=== PATIENT | female | born 1985 | race African-American/Black ===

== ENCOUNTER 2017-01-08 00:20 | Emergency (ER) | payer OTHER ==
[~2017-01-08] VITALS: Ht 172.7 cm; Wt 143.3 kg
[~2017-01-08 00:20] MED LIST: LISI-334 PO
[2017-01-08 00:30] VITALS: BP 175/96
[2017-01-08 00:38] LABS: BILIRUBIN,URINE SMALL (NEG); GLUCOSE,URINE NEGATIVE (NEG); NITRITE,URINE NEGATIVE (NEG); PH,URINE 5.5; PROTEIN,URINE 30 mg/dL (NEG-TRACE)
[2017-01-08 00:58] LABS: RBC,URINE TNTC /HPF (0-2)
[2017-01-08 00:59] LABS: BACTERIA,URINE FEW /HPF (0-FEW); SQUAMOUS EPITHELIAL CELL,UR FEW /LPF
[2017-01-08] MEDS ORDERED: NAPR-677 PO (01:02)
--- NOTE | 2017-01-08 01:02 | PHYS DOC ---
Past Medical History Past Medical History: Hypertension Additional Past Medical Histor: Ovarian cysts Past Surgical History: Additional Past Surgical Histo: ovarian cystectomy left Smoking: Cigarettes Alcohol Use: Occasionally Drug Use: None Adult General Chief Complaint Chief Complaint: ABDOMINAL PAIN HPI HPI Patient is a 31 year old female who presents with vaginal bleeding and cramping. She states she started her menses on and has had lower abdominal cramping more on the left. No nausea or vomiting. No fever. She is suppose to take hypertensive meds but has been out for a while. She has no PCP. She took "aspirin" on Saturday. She states it was Excedrin with aspirin (but not for sure). Review of Systems Review of Systems Constitutional: Denies fever or chills Eyes: Denies change in visual acuity, redness, or eye pain HENT: Denies nasal congestion or sore throat Respiratory: Denies cough or shortness of breath Cardiovascular: No chest pain GI: Denies abdominal pain, nausea, vomiting, bloody stools or diarrhea : Denies dysuria or hematuria. POS pelvic cramping; POS vaginal bleeding Musculoskeletal: Denies back pain or joint pain Integument: Denies rash or skin lesions Neurologic: Denies headache, focal weakness or sensory changes Allergies Allergies Allergies Coded Allergies Type Severity Reaction Last Updated Verified No Known Drug Allergies 08/26/14 No Physical Exam Physical Exam Constitutional: Well developed, well nourished, no acute distress, non-toxic appearance. HENT: Normocephalic, atraumatic, bilateral external ears normal, oropharynx moist, no oral exudates, nose normal. Eyes: PERRLA, EOMI, conjunctiva normal, no discharge. Neck: Normal range of motion, no tenderness, supple, no stridor. Cardiovascular:Heart rate regular rhythm, no murmur Lungs & Thorax: Bilateral breath sounds clear to auscultation Abdomen: Bowel sounds normal, soft, no tenderness, no masses, no pulsatile masses. : operating room rn present. Normal external genitalia. No rash. Bleeding from OS ( mild). No cervical motion tenderness. No masses palpable (but difficult secondary to obesity). Skin: Warm, dry, no erythema, no rash. Back: No tenderness, no CVA tenderness. Extremities: No tenderness, no cyanosis, no clubbing, ROM intact, no edema. Neurologic: Alert and oriented X 3, normal motor function, normal sensory function, no focal deficits noted. Psychologic: Affect normal, judgement normal, mood normal. Current Patient Data Lab Values Laboratory Tests Test 01/08/17 00:33 POC Urine HCG, Qualitative Hcg negative (Negative) Course & Med Decision Making Course & Med Decision Making Evaluated patient and reviewed prior records. She is noncompliant with her BP meds. She had a reaction (angioedema) to the lisinopril and has never been placed on another BP medication. UCG is negative. Given referral for follow up to have her BP addressed. Informed her not to take aspirin. Take tylenol or naprosyn. I have spoken with the patient and/or caregivers. I have explained the patient' s condition, diagnosis and treatment plan based on the information available to me at this time. I have answered the patient's and/or caregiver's questions and addressed any concerns. The patient and/or caregivers have as good an understanding of the patient's diagnosis, condition and treatment plan as can be expected at this point. The patient's condition is stable and appropriate for discharge from the emergency department. The patient will pursue further outpatient evaluation with the primary care physician or other designated or consulting physician as outlined in the discharge instructions. The patient and/or caregivers are agreeable to this plan of care and follow-up instructions have been explained in detail. The patient and/or caregivers have received these instructions in written format and have expressed an understanding of the discharge instructions. The patient and/or caregivers are aware that any significant change in condition or worsening of symptoms should prompt an immediate return to this or the closest emergency department or a call to 911. Mayela Disclaimer Mayela Disclaimer This electronic medical record was generated, in whole or in part, using a voice recognition dictation system. Departure Departure Impression: Primary Impression: Dysmenorrhea Disposition: HOME, SELF-CARE Condition: GOOD Referrals: NO PCP (PCP) Patient Instructions: Dysmenorrhea Additional Instructions: YOU NEED TO CONTACT ONE OF THE PRIMARY CARE DOCTORS TO HAVE YOUR BLOOD PRESSURE RE-EVALUATED. CONTACT YOUR OB-USER EXPERIENCE DEVELOPER THAT YOU HAVE FOR YOUR PAINFUL PERIODS. YOU NEED TO STOP SMOKING WELL. DO NOT TAKE ANYTHING WITH ASPIRIN IN IT. ANOTHER NAME FOR ASPIRIN IS SALICYLATES OR SALICYLIC ACID. Scripts Naproxen Sodium (NAPROXEN SODIUM) 550 Mg Tablet 1 TAB PO BID, #30 TAB Prov: SUSAN LOZADA MD 01/08/17 SUSAN LOZADA MD Jan 08, 2017 01:02
== END 2017-01-08 01:14 | disposition home or self-care (01) ==
LOC: ER 00:20
DX: N94.6 Dysmenorrhea, unspecified (principal); I10 Essential (primary) hypertension; Z90.6 Acquired absence of other parts of urinary tract; F17.210 Nicotine dependence, cigarettes, uncomplicated
CPT/HCPCS: 81001; 81025; 87086; 87491; 87591; 99284

== ENCOUNTER 2017-10-11 05:11 | Emergency (ER) | payer OTHER ==
[2017-10-11] MEDS: HYDROcodone/APAP 5/325MG 1 TAB TABLET PO (05:50)
[2017-10-11 06:05] LABS: D-DIMER 0.27 ug/mlFEU (0.00-0.50)
[2017-10-11 06:24] LABS: TROPONINI < 0.017 ng/mL (0.000-0.055)
== END 2017-10-11 07:30 | disposition home or self-care (01) ==
LOC: ER 05:11
DX: R07.89 Other chest pain (principal); I10 Essential (primary) hypertension
CPT/HCPCS: 36415; 71045; 84484; 84702; 85379; 93005; 99285-25

== ENCOUNTER 2018-02-20 06:15 | Emergency (ER) | payer OTHER ==
[~2018-02-20] VITALS: Ht 175.3 cm; Wt 131.5 kg
[~2018-02-20 06:15] MED LIST changes: +FAMO-63 PO; +NAPR-677 PO
--- NOTE | 2018-02-20 06:32 | PHYS DOC ---
Past Medical History Past Medical History: Hypertension Additional Past Medical Histor: Ovarian cysts, obesity Past Surgical History: Additional Past Surgical Histo: ovarian cystectomy left Smoking: Cigarettes, 1 Pack Per Day Alcohol Use: None Drug Use: Marijuana Adult General Chief Complaint Chief Complaint: SHORTNESS OF BREATH HPI HPI Patient is a 32-year-old -[place] female who presents to the emergency department for multiple medical complaints. Her main complaint is lower back pain which has been bothering her for about 3 weeks. She reports bilateral bandlike tightening in her lower back. She has not had any dysuria, vaginal bleeding or discharge. Her LMP was about 2 weeks ago, and around that time she had an Implanon contraceptive device implanted in her left arm. She states also that this morning she awakened and was somewhat short of breath and lightheaded and felt her heart beating fast, but the symptoms have mostly resolved at this time. She denies any chest pain, pleuritic or otherwise. She denies any numbness or weakness, abdominal pain, nausea, vomiting. There are no alleviating or exacerbating factors to her symptoms otherwise. Review of Systems Review of Systems Constitutional: Denies fever or chills [] Eyes: Denies change in visual acuity, redness, or eye pain [] HENT: Denies nasal congestion or sore throat [] Respiratory: Denies cough or current shortness of breath [] Cardiovascular: No additional information not addressed in HPI [] GI: Denies abdominal pain, nausea, vomiting, bloody stools or diarrhea [] : Denies dysuria or hematuria [] Musculoskeletal: Denies neck pain or joint pain [] Integument: Denies rash or skin lesions [] Neurologic: Denies headache, focal weakness or sensory changes [] Endocrine: Denies polyuria or polydipsia [] All other systems were reviewed and found to be within normal limits, except as documented in this note. Allergies Allergies Allergies Coded Allergies Type Severity Reaction Last Updated Verified No Known Drug Allergies 08/26/14 No Physical Exam Physical Exam PHYSICAL EXAM: CONSTITUTIONAL: Well developed, well nourished HEAD: normocephalic, atraumatic EENT: PERRL, EOMI. Conjunctivae normal color, sclerae non-icteric; moist mucous membranes. NECK: Supple, non-tender; no meningismus. LUNGS: Lungs CTA, breathing even and unlabored. Normal air movement. HEART: Regular rate and rhythm, no murmur CHEST: No deformity; non-tender ABDOMEN: The abdomen is soft, and non-tender, no masses or bruits. EXTREM: Normal ROM; no deformity, no calf tenderness. Normal pulses palpable in all extremities. There is no pedal edema. SKIN: No rash; no diaphoresis NEURO: Alert; normal speech and cognition; CN's grossly intact; strength grossly intact without focal deficit. BACK: No CVA TTP.There is no bony tenderness to palpation of the thoracic or lumbar spine. Current Patient Data Vital Signs Vital Signs Date Time Temp Pulse Resp B/P (MAP) Pulse Ox O2 Delivery O2 Flow Rate FiO2 02/20/18 06:20 99.0 65 18 162/74 (103) 97 Room Air 99.0 Lab Values Laboratory Tests Test 02/20/18 06:25 02/20/18 06:38 02/20/18 07:17 Urine Collection Type Unknown Urine Color Yellow Urine Clarity Clear Urine pH 7.0 Urine Specific [place] 1.025 Urine Protein Negative mg/dL (NEG-TRACE) Urine Glucose (UA) Negative mg/dL (NEG) Urine Ketones (Stick) Negative mg/dL (NEG) Urine Blood Small (NEG) Urine Nitrite Negative (NEG) Urine Bilirubin Negative (NEG) Urine Urobilinogen Dipstick 1.0 mg/dL (0.2 mg/dL) Urine Leukocyte Esterase Negative (NEG) Urine RBC 3-5 /HPF (0-2) Urine WBC 1-4 /HPF (0-4) Urine Squamous Epithelial Cells Few /LPF Urine Bacteria Few /HPF (0-FEW) Urine Mucus Slight /LPF POC Urine HCG, Qualitative Hcg negative (Negative) White Blood Count 6.8 x10^3/uL (4.0-11.0) Red Blood Count 6.08 x10^6/uL (3.50-5.40) H Hemoglobin 11.6 g/dL (12.0-15.5) L Hematocrit 35.1 % (36.0-47.0) L Mean Corpuscular Volume 58 fL (79-100) L Mean Corpuscular Hemoglobin 19 pg (25-35) L Mean Corpuscular Hemoglobin Concent 33 g/dL (31-37) Red Cell Distribution Width 19.4 % (11.5-14.5) H Platelet Count 488 x10^3/uL (140-400) H Neutrophils (%) (Auto) 57 % (31-73) Lymphocytes (%) (Auto) 33 % (24-48) Monocytes (%) (Auto) 8 % (0-9) Eosinophils (%) (Auto) 2 % (0-3) Basophils (%) (Auto) 1 % (0-3) Neutrophils # (Auto) 3.9 x10^3uL (1.8-7.7) Lymphocytes # (Auto) 2.2 x10^3/uL (1.0-4.8) Monocytes # (Auto) 0.5 x10^3/uL (0.0-1.1) Eosinophils # (Auto) 0.1 x10^3/uL (0.0-0.7) Basophils # (Auto) 0.0 x10^3/uL (0.0-0.2) Platelet Estimate Pending D-Dimer ([place]) 0.36 ug/mlFEU (0.00-0.50) Sodium Level 139 mmol/L (136-145) Potassium Level 4.1 mmol/L (3.5-5.1) Chloride Level 104 mmol/L (98-107) Carbon Dioxide Level 24 mmol/L (21-32) Anion Gap 11 (6-14) Blood Urea Nitrogen 12 mg/dL (7-20) Creatinine 0.8 mg/dL (0.6-1.0) Estimated GFR (Cockcroft-Gault) 101.9 BUN/Creatinine Ratio 15 (6-20) Glucose Level 89 mg/dL (70-99) Calcium Level 8.9 mg/dL (8.5-10.1) Total Bilirubin 0.3 mg/dL (0.2-1.0) Aspartate Amino Transferase (AST) 11 U/L (15-37) L Alanine Aminotransferase (ALT) 16 U/L (14-59) Alkaline Phosphatase 52 U/L (46-116) Troponin I Quantitative < 0.017 ng/mL (0.000-0.055) Total Protein 8.5 g/dL (6.4-8.2) H Albumin 3.2 g/dL (3.4-5.0) L Albumin/Globulin Ratio 0.6 (1.0-1.7) L Lipase 66 U/L (73-393) L Laboratory Tests 02/20/18 07:17 Laboratory Tests 02/20/18 07:17 EKG EKG [Normal sinus rhythm at a rate of 63 beats for minute, left axis deviation, normal intervals. There are no acute ischemic ST/T changes.] Radiology/Procedures Radiology/Procedures [PROCEDURE: CHEST PA & LATERAL Chest, 2 views, 02/20/2018: HISTORY: Shortness of breath Comparison is made to a study from 10/11/2017. The heart is near the upper limits of normal in size. The pulmonary vascularity is normal. No pulmonary infiltrate is seen. There is no evidence of pleural fluid. IMPRESSION: No acute cardiopulmonary abnormality is detected.] Course & Med Decision Making Course & Med Decision Making Pertinent Labs and Imaging studies reviewed. (See chart for details) [8:10 AM:Patient remains stable. I discussed test results, the need for close follow-up, and return precautions. There are no old labs for comparison. I discussed the patient's noted anemia with the patient and the need for close follow-up with a primary care provider for further evaluation. She will be provided resources to establish primary care follow-up.] Dragon Disclaimer Dragon Disclaimer This electronic medical record was generated, in whole or in part, using a voice recognition dictation system. Departure Departure Impression: Primary Impression: Low back pain Additional Impressions: Dizziness Dyspnea Anemia Disposition: 01 HOME, SELF-CARE Condition: STABLE Patient Instructions: Anemia, Nonspecific-Brief, Back Pain, Adult, Dizziness, Shortness of Breath Additional Instructions: You were noted to be anemic today. This will require further outpatient evaluation and testing. Please use the provided resources to establish care with a primary care provider for further evaluation. Ibuprofen 400-600 mg every 6 hours may help improve your symptoms. Applying a heating pad to the affected area may help improve your symptoms. The prescribed medications may cause drowsiness-use caution while taking. Scripts Cyclobenzaprine Hcl (CYCLOBENZAPRINE HCL) 10 Mg Tablet 1 TAB PO TID PRN for PAIN, #30 TAB Prov: BRIGITTE CARVAJAL MD 02/20/18 Problem Qualifiers BRIGITTE CARVAJAL MD Feb 20, 2018 06:32
[2018-02-20 06:47] LABS: BILIRUBIN,URINE NEGATIVE (NEG); CLARITY,URINE CLEAR; COLOR,URINE YELLOW; NITRITE,URINE NEGATIVE (NEG); PROTEIN,URINE NEGATIVE (NEG-TRACE)
[2018-02-20 07:06] LABS: BACTERIA,URINE FEW /HPF (0-FEW)
[2018-02-20 07:07] LABS: SQUAMOUS EPITHELIAL CELL,UR FEW /LPF
[2018-02-20 07:30] LABS: BASO % 1 % (0-3); EOS # 0.1 x10^3/uL (0.0-0.7); EOS % 2 % (0-3); HEMATOCRIT 35.1 % (36.0-47.0); HEMOGLOBIN 11.6 g/dL (12.0-15.5); LYMPH # 2.2 x10^3/uL (1.0-4.8); LYMPH % 33 % (24-48); MEAN CORPUSCULAR HEMOGLOBIN 19 pg (25-35); MEAN CORPUSCULAR HGB CONC 33 g/dL (31-37); MEAN CORPUSCULAR VOLUME 58 fL (79-100); MONO # 0.5 x10^3/uL (0.0-1.1); MONO % 8 % (0-9); NEUT # 3.9 x10^3uL (1.8-7.7); NEUT % 57 % (31-73); PLATELET COUNT 488 x10^3/uL (140-400); RED BLOOD COUNT 6.08 x10^6/uL (3.50-5.40); RED CELL DISTRIBUTION WIDTH 19.4 % (11.5-14.5); WHITE BLOOD COUNT 6.8 x10^3/uL (4.0-11.0)
[2018-02-20 07:38] LABS: CALCIUM 8.9 mg/dL (8.5-10.1); CREATININE 0.8 mg/dL (0.6-1.0); GFR 101.9; POTASSIUM 4.1 mmol/L (3.5-5.1)
[2018-02-20 07:44] LABS: ALBUMIN 3.2 g/dL (3.4-5.0); ALBUMIN/GLOBULIN RATIO 0.6 (1.0-1.7); TOTAL BILIRUBIN 0.3 mg/dL (0.2-1.0); TOTAL PROTEIN 8.5 g/dL (6.4-8.2)
--- NOTE | 2018-02-20 08:04 | RAD ---
Chest, 2 views, 02/20/2018: HISTORY: Shortness of breath Comparison is made to a study from 10/11/2017. The heart is near the upper limits of normal in size. The pulmonary vascularity is normal. No pulmonary infiltrate is seen. There is no evidence of pleural fluid. IMPRESSION: No acute cardiopulmonary abnormality is detected. Electronically signed by: Dick Wellington MD (02/20/2018 8:01 AM) [facility]
[2018-02-20] MEDS ORDERED: CYCL10TA2 PO (08:22)
[2018-02-20 08:27] VITALS: BP 127/70
--- NOTE | 2018-02-20 11:24 | EKG ---
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
[2018-02-20 12:16] LABS: PLT ESTIMATE INCREASED (ADEQUATE)
[2018-02-20 12:17] LABS: ANISOCYTOSIS SLIGHT; HYPOCHROMIA MOD; MICROCYTOSIS MOD; POIKILOCYTOSIS SLIGHT; TARGET CELLS FEW
== END 2018-02-20 09:04 | disposition home or self-care (01) ==
LOC: ER 06:15
DX: M54.5 Low back pain (principal); R42 Dizziness and giddiness; R06.00 Dyspnea, unspecified; D64.9 Anemia, unspecified; I10 Essential (primary) hypertension; F17.210 Nicotine dependence, cigarettes, uncomplicated
CPT/HCPCS: 36415; 71046; 80053; 81001; 81025; 83690; 84484; 85025; 85379; 93005; 99284-25

== ENCOUNTER 2018-05-31 13:55 | Emergency (ER) | payer OTHER ==
[~2018-05-31] VITALS: Ht 177.8 cm; Wt 127.0 kg
[~2018-05-31 13:55] MED LIST changes: +CYCL10TA2 PO
[2018-05-31 14:41] LABS: BILIRUBIN,URINE NEGATIVE (NEG); CLARITY,URINE CLEAR; COLOR,URINE YELLOW; NITRITE,URINE NEGATIVE (NEG); PH,URINE 7.5; PROTEIN,URINE NEGATIVE (NEG-TRACE); UROBILINOGEN,URINE 0.2 mg/dL (0.2 mg/dL)
[2018-05-31] MEDS ORDERED: KETOROLAC 30 MG/ML VIAL. IV ONE (14:45)
[2018-05-31] MEDS ORDERED: diphenhydrAMINE 50 MG/ML VIAL IVP ONE (14:45)
[2018-05-31] MEDS ORDERED: IV NORMAL SALINE 1000ML BAG 1,000 ML IV ONE (14:45)
[2018-05-31] MEDS ORDERED: PROCHLORPERAZINE 10 MG/2 ML VIAL. IV ONE (14:45)
[2018-05-31 14:46] LABS: BACTERIA,URINE 0 /HPF (0-FEW); RBC,URINE OCC /HPF (0-2); SQUAMOUS EPITHELIAL CELL,UR FEW /LPF; WBC,URINE 0 /HPF (0-4)
--- NOTE | 2018-05-31 14:46 | PHYS DOC ---
Past Medical History Past Medical History: Hypertension Additional Past Medical Histor: Ovarian cysts, obesity Past Surgical History: Additional Past Surgical Histo: ovarian cystectomy left Alcohol Use: None Drug Use: Marijuana Adult General Chief Complaint Chief Complaint: DIZZY/LIGHT HEADED HPI HPI Patient is a 33 year old female who presents with dizziness, headache, nausea, blurred vision, palpitations or last 3 days. Patient is rating her pain a 10 out of 10. Review of Systems Review of Systems Constitutional: Denies fever or chills [] Eyes: Denies change in visual acuity, redness, or eye pain [] HENT: Denies nasal congestion or sore throat [] Respiratory: Denies cough or shortness of breath [] Cardiovascular: No additional information not addressed in HPI [] GI: Denies abdominal pain, +nausea, denies vomiting, bloody stools or diarrhea [ ] : Denies dysuria or hematuria [] Musculoskeletal: Denies back pain or joint pain [] Integument: Denies rash or skin lesions [] Neurologic: headache, denies focal weakness or sensory changes [] All other systems were reviewed and found to be within normal limits, except as documented in this note. Current Medications Current Medications Current Medications Medications (Trade) Dose Ordered Sig/Jean Start Time Stop Time Status Last Admin Dose Admin Diphenhydramine HCl (Benadryl) 25 mg 1X ONCE 05/31/18 14:45 05/31/18 14:47 DC 05/31/18 15:02 25 MG Ketorolac Tromethamine (Toradol 30mg Vial) 30 mg 1X ONCE 05/31/18 14:45 05/31/18 14:47 DC 05/31/18 15:05 30 MG Prochlorperazine Edisylate (Compazine) 10 mg 1X ONCE 05/31/18 14:45 05/31/18 14:47 DC 05/31/18 14:57 10 MG Sodium Chloride 1,000 ml @ 1,000 mls/hr 1X ONCE 05/31/18 14:45 05/31/18 15:44 DC 05/31/18 14:53 1,000 MLS/HR Allergies Allergies Allergies Coded Allergies Type Severity Reaction Last Updated Verified lisinopril Allergy Intermediate FACIAL EDEMA 05/31/18 Yes Physical Exam Physical Exam Constitutional: Well developed, well nourished, no acute distress, non-toxic appearance. [] HENT: Normocephalic, atraumatic, bilateral external ears normal, oropharynx moist, no oral exudates, nose normal. [] Eyes: PERRLA, EOMI, conjunctiva normal, no discharge. Light sensitivity. [] Neck: Normal range of motion, no tenderness, supple, no stridor. [] Cardiovascular:Heart rate regular rhythm, no murmur [] Lungs & Thorax: Bilateral breath sounds clear to auscultation [] Abdomen: Bowel sounds normal, soft, no tenderness, no masses, no pulsatile masses. [] Skin: Warm, dry, no erythema, no rash. [] Back: No tenderness, no CVA tenderness. [] Extremities: No tenderness, no cyanosis, no clubbing, ROM intact, no edema. [] Neurologic: Alert and oriented X 3, normal motor function, normal sensory function, no focal deficits noted. [] Psychologic: Affect normal, judgement normal, mood normal. [] Current Patient Data Vital Signs Vital Signs Date Time Temp Pulse Resp B/P (MAP) Pulse Ox O2 Delivery O2 Flow Rate FiO2 05/31/18 14:00 98.5 88 19 155/88 (110) 100 Room Air 98.5 Lab Values Laboratory Tests Test 05/31/18 14:00 05/31/18 14:21 Urine Collection Type Unknown Urine Color Yellow Urine Clarity Clear Urine pH 7.5 Urine Specific [place] 1.010 Urine Protein Negative mg/dL (NEG-TRACE) Urine Glucose (UA) Negative mg/dL (NEG) Urine Ketones (Stick) Negative mg/dL (NEG) Urine Blood Trace (NEG) Urine Nitrite Negative (NEG) Urine Bilirubin Negative (NEG) Urine Urobilinogen Dipstick 0.2 mg/dL (0.2 mg/dL) Urine Leukocyte Esterase Negative (NEG) Urine RBC Occ /HPF (0-2) Urine WBC 0 /HPF (0-4) Urine Squamous Epithelial Cells Few /LPF Urine Bacteria 0 /HPF (0-FEW) Urine Mucus Slight /LPF Urine Test Negative (NEG) White Blood Count 9.1 x10^3/uL (4.0-11.0) Red Blood Count 5.68 x10^6/uL (3.50-5.40) H Hemoglobin 10.6 g/dL (12.0-15.5) L Hematocrit 33.4 % (36.0-47.0) L Mean Corpuscular Volume 59 fL (79-100) L Mean Corpuscular Hemoglobin 19 pg (25-35) L Mean Corpuscular Hemoglobin Concent 32 g/dL (31-37) Red Cell Distribution Width 19.5 % (11.5-14.5) H Platelet Count 448 x10^3/uL (140-400) H Neutrophils (%) (Auto) 51 % (31-73) Lymphocytes (%) (Auto) 36 % (24-48) Monocytes (%) (Auto) 11 % (0-9) H Eosinophils (%) (Auto) 1 % (0-3) Basophils (%) (Auto) 1 % (0-3) Neutrophils # (Auto) 4.6 x10^3uL (1.8-7.7) Lymphocytes # (Auto) 3.3 x10^3/uL (1.0-4.8) Monocytes # (Auto) 1.0 x10^3/uL (0.0-1.1) Eosinophils # (Auto) 0.1 x10^3/uL (0.0-0.7) Basophils # (Auto) 0.1 x10^3/uL (0.0-0.2) Platelet Estimate Increased (ADEQUATE) Polychromasia Slight Hypochromasia Mod Anisocytosis Slight Microcytosis Marked Target Cells Many Sodium Level 139 mmol/L (136-145) Potassium Level 3.9 mmol/L (3.5-5.1) Chloride Level 103 mmol/L (98-107) Carbon Dioxide Level 28 mmol/L (21-32) Anion Gap 8 (6-14) Blood Urea Nitrogen 9 mg/dL (7-20) Creatinine 0.8 mg/dL (0.6-1.0) Estimated GFR (Cockcroft-Gault) 101.2 Glucose Level 78 mg/dL (70-99) Calcium Level 8.4 mg/dL (8.5-10.1) L Laboratory Tests 05/31/18 14:21 Laboratory Tests 05/31/18 14:21 EKG EKG Sinus rhythm and no STEMI Interpretation Time: [address] Patricia Radiology/Procedures Radiology/Procedures [] Impressions: [facility] [address] [place] [address] IMAGING REPORT Signed PATIENT: KARINE HARDIN ACCOUNT: [id number] : 1985 LOCATION: ER AGE: 33 SEX: F EXAM STATUS: REG ER ORD. PHYSICIAN: PASQUALE LI APRN REASON: dizziness, headache PROCEDURE: CT HEAD WO CONTRAST Examination: CT HEAD WO CONTRAST History: dizzy ;hbp Comparison/Correlation: None Findings: Axial images of the head were obtained without contrast. Ventricles are normal size. No intracranial hemorrhage, midline shift, or mass effect. Globes and optic nerves are unremarkable. Bony structures are unremarkable. Impression: No acute process. RS Compliance Statement: One or more of the following individualized dose reduction techniques were utilized for this examination: 1. Automated exposure control 2. Adjustment of the mA and/or kV according to patient size 3. Use of iterative reconstruction technique Electronically signed by: Mu Wise MD (05/31/2018 3:56 PM) [facility] DICTATED and SIGNED BY: MU WISE MD DATE: 05/31/18 1556 [facility] [address] [place] [address] IMAGING REPORT Signed PATIENT: KARINE HARDIN ACCOUNT: [id number] : 1985 LOCATION: ER AGE: 33 SEX: F EXAM STATUS: REG ER ORD. PHYSICIAN: PASQUALE LI APRN REASON: palpitations PROCEDURE: CHEST PA & LATERAL EXAM: Chest, 2 views. HISTORY: Chest pain. COMPARISON: 02/20/2018 FINDINGS: 2 views the chest are obtained. There is no infiltrate, pleural effusion or pneumothorax. The heart is normal in size. IMPRESSION: No acute pulmonary finding. Electronically signed by: Sarah Perez MD (05/31/2018 3:59 PM) [facility] DICTATED and SIGNED BY: SARAH PEREZ MD DATE: 05/31/18 1559 Course & Med Decision Making Course & Med Decision Making Patient is a 33 year old female who presents with dizziness, headache, nausea, blurred vision, palpitations or last 3 days. Patient is rating her pain a 10 out of 10. Afebrile. Patient states her headache is in ribs in front of her head. PERRLA. No nystagmus. Patient does have light sensitivity. Ambulatory with a steady gait. No extremity swelling. Neurologically intact. No focal weaknesses. Denies any numbness or tingling, chest pain, shortness of breath, syncope, vomiting, dysuria. Alert and oriented. Denies any neck pain. Skin pink warm and dry. Mucous membranes are moist. Lungs are clear to auscultation in all lobes. Heart rate regular without murmur. Denies this being he worst headache she has ever felt. EKG shows sinus rhythm and no STEMI. Abdomen soft and nontender. No extremity swelling. Blood work is unremarkable. CT head shows no acute findings. Chest x-ray shows no acute findings. Patient she is feeling much better after receiving Compazine , Benadryl, Toradol. Patient's rating her pain a 2 out of 10. She states she is ready to go home. Patient follow-up with her primary care and drink plenty of fluids. Dragon Disclaimer Dragon Disclaimer This electronic medical record was generated, in whole or in part, using a voice recognition dictation system. Departure Departure Impression: Primary Impression: Headache Disposition: 01 HOME, SELF-CARE Condition: STABLE Referrals: NO PCP (PCP) Patient Instructions: General Headache Without Cause Additional Instructions: Follow-up with primary care provider. Drink plenty of fluids. Take ibuprofen or Excedrin migraine if her headache returns. Problem Qualifiers Primary Impression: Headache Headache type: unspecified Headache chronicity pattern: unspecified pattern Intractability: not intractable Qualified Codes: R51 - Headache PASQUALE LI SUPERVISORY INVESTIGATIVE SPECIALIST May 31, 2018 14:46
[2018-05-31 14:49] LABS: BASO # 0.1 x10^3/uL (0.0-0.2); BASO % 1 % (0-3); EOS # 0.1 x10^3/uL (0.0-0.7); EOS % 1 % (0-3); HEMATOCRIT 33.4 % (36.0-47.0); HEMOGLOBIN 10.6 g/dL (12.0-15.5); LYMPH # 3.3 x10^3/uL (1.0-4.8); LYMPH % 36 % (24-48); MEAN CORPUSCULAR HEMOGLOBIN 19 pg (25-35); MEAN CORPUSCULAR HGB CONC 32 g/dL (31-37); MEAN CORPUSCULAR VOLUME 59 fL (79-100); MONO % 11 % (0-9); NEUT # 4.6 x10^3uL (1.8-7.7); NEUT % 51 % (31-73); PLATELET COUNT 448 x10^3/uL (140-400); RED BLOOD COUNT 5.68 x10^6/uL (3.50-5.40); RED CELL DISTRIBUTION WIDTH 19.5 % (11.5-14.5); WHITE BLOOD COUNT 9.1 x10^3/uL (4.0-11.0)
[2018-05-31 14:57] LABS: CALCIUM 8.4 mg/dL (8.5-10.1); CREATININE 0.8 mg/dL (0.6-1.0); GFR 101.2; POTASSIUM 3.9 mmol/L (3.5-5.1)
[2018-05-31 15:12] LABS: ANISOCYTOSIS SLIGHT; HYPOCHROMIA MOD; MICROCYTOSIS MARKED; PLT ESTIMATE INCREASED (ADEQUATE); POLYCHROMASIA SLIGHT; TARGET CELLS MANY
[2018-05-31 15:33] LABS: U PREG PATIENT NEGATIVE (NEG)
--- NOTE | 2018-05-31 15:59 | RAD ---
Examination: CT HEAD WO CONTRAST History: dizzy ;hbp Comparison/Correlation: None Findings: Axial images of the head were obtained without contrast. Ventricles are normal size. No intracranial hemorrhage, midline shift, or mass effect. Globes and optic nerves are unremarkable. Bony structures are unremarkable. Impression: No acute process. PQRS Compliance Statement: One or more of the following individualized dose reduction techniques were utilized for this examination: 1. Automated exposure control 2. Adjustment of the mA and/or kV according to patient size 3. Use of iterative reconstruction technique Electronically signed by: Mu Lugo MD (05/31/2018 3:56 PM) [facility]
--- NOTE | 2018-05-31 16:03 | RAD ---
EXAM: Chest, 2 views. HISTORY: Chest pain. COMPARISON: 02/20/2018 FINDINGS: 2 views the chest are obtained. There is no infiltrate, pleural effusion or pneumothorax. The heart is normal in size. IMPRESSION: No acute pulmonary finding. Electronically signed by: Sarah Mo MD (05/31/2018 3:59 PM) [facility]
[2018-05-31 16:53] VITALS: BP 122/67
--- NOTE | 2018-06-01 08:42 | EKG ---
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
== END 2018-05-31 17:15 | disposition home or self-care (01) ==
LOC: ER 13:55
DX: R51 Headache (principal); R42 Dizziness and giddiness; R00.2 Palpitations; R11.0 Nausea; H53.9 Unspecified visual disturbance; I10 Essential (primary) hypertension; Z88.8 Allergy status to other drugs, medicaments and biological substances
CPT/HCPCS: 36415; 70450; 71046; 80048; 81001; 81025; 85025; 93005; 96361; 96374; 96375; 99284; J0780; J1200; J1885; J7030

== ENCOUNTER 2020-08-20 03:06 | Emergency (ER) | payer SELFPAY ==
[~2020-08-20] VITALS: Ht 175.3 cm; Wt 136.0 kg
[~2020-08-20 03:06] MED LIST changes: -LISI-334 PO; +LISI20TA18 PO
--- NOTE | 2020-08-20 04:22 | ED.ADGEN ---
Past Medical History Past Medical History: Hypertension Additional Past Medical Histor: Ovarian cysts, obesity Past Surgical History: Additional Past Surgical Histo: ovarian cystectomy left Smoking Status: Never Smoker Alcohol Use: None Drug Use: Marijuana General Adult EDM: Chief Complaint: SHORTNESS OF BREATH HPI: HPI: Patient is a 35 year old female coming in for shortness of breath or palpitation waking her from sleep about 2-1/2 hours prior to arrival. Patient states she has had this happen multiple times in the past but usually is able to calm herself down. Came in because it took longer than usual to calm the racing heart rate. Denies any chest pain or pressure. Patient is otherwise been well. Has been evaluated by her primary care physician years ago for sleep apnea with a home test but was found not to have sleep apnea. Denies any recent illness, asthma, COPD. Has a history of tobacco use but denies any current use. Review of Systems: Review of Systems: All other systems within normal limits except for as noted in the HPI Allergies: Allergies: Allergies Coded Allergies Type Severity Reaction Last Updated Verified lisinopril Allergy Intermediate FACIAL EDEMA 05/31/18 Yes Physical Exam: PE: Constitutional: Well developed, well nourished, no acute distress, non-toxic appearance. [] HENT: Normocephalic, atraumatic, bilateral external ears normal, nose normal. [] Eyes: PERRLA, conjunctiva normal, no discharge. [] Neck: No rigidity, supple, no stridor. [] Cardiovascular: Regular rate and rhythm, brisk cap refill [] Lungs & Thorax: Non labored symmetric respirations, no tachypnea or respiratory distress [] Abdomen: Soft, nondistended. Skin: Warm, dry, no erythema, no rash. [] Back: Unremarkable Extremities: No deformities, range of motion grossly intact, no lower extremity edema [] Neurologic: Alert and oriented X 3, no focal deficits noted. [] Psychologic: Affect normal, judgement normal, mood normal. [] Current Patient Data: Labs: Laboratory Tests Test 08/20/20 04:20 08/20/20 04:55 08/20/20 06:00 White Blood Count 8.0 x10^3/uL (4.0-11.0) Red Blood Count 5.86 x10^6/uL (3.50-5.40) H Hemoglobin 11.3 g/dL (12.0-15.5) L Hematocrit 35.1 % (36.0-47.0) L Mean Corpuscular Volume 60 fL (79-100) L Mean Corpuscular Hemoglobin 19 pg (25-35) L Mean Corpuscular Hemoglobin Concent 32 g/dL (31-37) Red Cell Distribution Width 18.9 % (11.5-14.5) H Platelet Count 458 x10^3/uL (140-400) H Neutrophils (%) (Auto) 63 % (31-73) Lymphocytes (%) (Auto) 25 % (24-48) Monocytes (%) (Auto) 10 % (0-9) H Eosinophils (%) (Auto) 1 % (0-3) Basophils (%) (Auto) 1 % (0-3) Neutrophils # (Auto) 5.1 x10^3/uL (1.8-7.7) Lymphocytes # (Auto) 2.0 x10^3/uL (1.0-4.8) Monocytes # (Auto) 0.8 x10^3/uL (0.0-1.1) Eosinophils # (Auto) 0.1 x10^3/uL (0.0-0.7) Basophils # (Auto) 0.1 x10^3/uL (0.0-0.2) Platelet Estimate Increased (ADEQUATE) Large Platelets Occ Hypochromasia Slight Microcytosis Mod Macrocytosis Slight Target Cells Few Sodium Level 137 mmol/L (136-145) Potassium Level 3.7 mmol/L (3.5-5.1) Chloride Level 102 mmol/L (98-107) Carbon Dioxide Level 26 mmol/L (21-32) Anion Gap 9 (6-14) Blood Urea Nitrogen 9 mg/dL (7-20) Creatinine 0.9 mg/dL (0.6-1.0) Estimated GFR (Cockcroft-Gault) 87.3 BUN/Creatinine Ratio 10 (6-20) Glucose Level 118 mg/dL (70-99) H Calcium Level 8.3 mg/dL (8.5-10.1) L Magnesium Level 1.9 mg/dL (1.8-2.4) Total Bilirubin 0.3 mg/dL (0.2-1.0) Aspartate Amino Transferase (AST) 11 U/L (15-37) L Alanine Aminotransferase (ALT) 15 U/L (14-59) Alkaline Phosphatase 59 U/L (46-116) Troponin I Quantitative < 0.017 ng/mL (0.000-0.055) OW-Ben-Q-Type Natriuretic Peptide 64 pg/mL (0-124) Total Protein 7.4 g/dL (6.4-8.2) Albumin 3.2 g/dL (3.4-5.0) L Albumin/Globulin Ratio 0.8 (1.0-1.7) L POC Urine HCG, Qualitative Hcg negative (Negative) Laboratory Tests 08/20/20 04:20 Laboratory Tests 08/20/20 04:55 Vital Signs: Vital Signs Date Time Temp Pulse Resp B/P (MAP) Pulse Ox O2 Delivery O2 Flow Rate FiO2 08/20/20 05:55 82 24 164/98 (120) 97 Room Air 08/20/20 03:12 97.9 97.9 EKG: EKG: Sinus rhythm, heart rate 86/min, normal axis, occasional PVCs, no ST elevation or depression [] Heart Score: C/O Chest Pain: No Risk Factors: Risk Factors: DM, Current or recent (<one month) smoker, HTN, HLP, family history of CAD, obesity. Risk Scores: Score 0 - 3: 2.5% MACE over next 6 weeks - Discharge Home Score 4 - 6: 20.3% MACE over next 6 weeks - Admit for Clinical Observation Score 7 - 10: 72.7% MACE over next 6 weeks - Early Invasive Strategies Radiology/Procedures: Radiology/Procedures: XR CHEST 2V Technique: PA and lateral views of the chest were obtained. Clinical History: Reason: dyspnea / Spl. Instructions: / History: Comparison: May 31, 2018. Findings: The heart and pulmonary vasculature appear within normal limits. The lungs are clear. The pleural margins are clear. Impression: No acute chest process is seen. [] Course & Med Decision Making: Course & Med Decision Making Pertinent Labs and Imaging studies reviewed. (See chart for details) [] Dragon Disclaimer: Dragon Disclaimer: This electronic medical record was generated, in whole or in part, using a voice recognition dictation system. Departure Departure Impression: Primary Impression: Hypertension Additional Impression: Dyspnea Disposition: 01 HOME / SELF CARE / HOMELESS Condition: STABLE Referrals: UNKNOWN PCP NAME (PCP) Patient Instructions: Hypertension Additional Instructions: Follow-up with your primary care provider for further blood pressure management. Consider repeating sleep study for possible sleep apnea. Scripts Hydrochlorothiazide (HYDROCHLOROTHIAZIDE CAPSULE ) 12.5 Mg Capsule 12.5 MG PO DAILY for DIURETIC for 30 Days, #30 CAP 0 Refills Prov: MAURA REN MD 08/20/20 Problem Qualifiers MAURA REN MD August 20, 2020 04:22
[2020-08-20 04:31] LABS: BASO # 0.1 x10^3/uL (0.0-0.2); BASO % 1 % (0-3); EOS # 0.1 x10^3/uL (0.0-0.7); EOS % 1 % (0-3); HEMATOCRIT 35.1 % (36.0-47.0); HEMOGLOBIN 11.3 g/dL (12.0-15.5); LYMPH % 25 % (24-48); MEAN CORPUSCULAR HEMOGLOBIN 19 pg (25-35); MEAN CORPUSCULAR HGB CONC 32 g/dL (31-37); MEAN CORPUSCULAR VOLUME 60 fL (79-100); MONO # 0.8 x10^3/uL (0.0-1.1); MONO % 10 % (0-9); NEUT # 5.1 x10^3/uL (1.8-7.7); NEUT % 63 % (31-73); PLATELET COUNT 458 x10^3/uL (140-400); RED BLOOD COUNT 5.86 x10^6/uL (3.50-5.40); RED CELL DISTRIBUTION WIDTH 18.9 % (11.5-14.5)
--- NOTE | 2020-08-20 04:36 | NUR ---
advised KARINA Galicai chemistry was hemolyzed and needs to be redrawn.
--- NOTE | 2020-08-20 04:42 | EKG ---
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
--- NOTE | 2020-08-20 04:47 | RAD ---
XR CHEST 2V Technique: PA and lateral views of the chest were obtained. Clinical History: Reason: dyspnea / Spl. Instructions: / History: Comparison: May 31, 2018. Findings: The heart and pulmonary vasculature appear within normal limits. The lungs are clear. The pleural ma rgins are clear. Impression: No acute chest process is seen. Electronically signed by: Celio Walls III, MD (08/20/2020 4:44 AM) [facility]
[2020-08-20 05:32] LABS: CALCIUM 8.3 mg/dL (8.5-10.1); CREATININE 0.9 mg/dL (0.6-1.0); GFR 87.3; POTASSIUM 3.7 mmol/L (3.5-5.1)
[2020-08-20 05:38] LABS: ALBUMIN 3.2 g/dL (3.4-5.0); ALBUMIN/GLOBULIN RATIO 0.8 (1.0-1.7); MAGNESIUM 1.9 mg/dL (1.8-2.4); TOTAL BILIRUBIN 0.3 mg/dL (0.2-1.0); TOTAL PROTEIN 7.4 g/dL (6.4-8.2)
[2020-08-20 05:41] LABS: HYPOCHROMIA SLIGHT
[2020-08-20 05:42] LABS: MICROCYTOSIS MOD; PLT ESTIMATE INCREASED (ADEQUATE); TARGET CELLS FEW
[2020-08-20] MEDS ORDERED: HYDR12.575 PO (05:42)
[2020-08-20 05:55] VITALS: BP 164/98
== END 2020-08-20 06:15 | disposition home or self-care (01) ==
LOC: ER 03:06
DX: I10 Essential (primary) hypertension (principal); R06.02 Shortness of breath; Z88.8 Allergy status to other drugs, medicaments and biological substances
CPT/HCPCS: 36415; 71046; 80053; 81025; 83735; 83880; 84484; 85025; 93005; 99285-25

== ENCOUNTER 2021-04-03 06:54 | Emergency (ER) | payer OTHER ==
[~2021-04-03] VITALS: Ht 175.3 cm; Wt 165.4 kg
[~2021-04-03 06:54] MED LIST changes: +CYCL10TA19 PO; -CYCL10TA2 PO; +HYDR12.575 PO
--- NOTE | 2021-04-03 07:09 | PHYS DOC ---
Past Medical History Past Medical History: Hypertension Additional Past Medical Histor: Ovarian cysts, obesity Past Surgical History: Additional Past Surgical Histo: ovarian cystectomy left Smoking Status: Never Smoker Alcohol Use: None Drug Use: Marijuana General Adult HPI: HPI: Patient is a 35 year old female here with 1 week history of intermittent mid and left-sided, sharp chest pain. The pain does not radiate. The patient reports the symptoms last for seconds to minutes. No change in symptoms today. She reports associated palpitations. She denies dyspnea, pleuritic pain, cough, hemoptysis. She denies dizziness, diaphoresis, nausea vomiting, abdominal pain. She denies lower extremity pain or swelling. She denies exertional pain or dyspnea exertion. She denies fevers or chills. She denies any recent travel, surgery, hospitalization. She is not taking any oral contraceptives or exogenous hormone treatment. No known family history of early coronary disease or sudden cardiac . No known family history of PE. She has experienced intermittent chest pain symptoms for over a year, she has seen a assembling fabricator at [facility]. She reports that she has had an echocardiogram, no stress testing. She has no active pain at present. Review of Systems: Review of Systems: Constitutional: Denies fever or chills. [] HENT: Denies nasal congestion or sore throat. [] Respiratory: Denies cough or shortness of breath. [] Cardiovascular: Chest pain. Denies peripheral edema. Reports palpitations. GI: Denies abdominal pain, nausea, vomiting Musculoskeletal: Denies back pain or joint pain. [] Integument: Denies rash. [] Neurologic: Denies headache, focal weakness or sensory changes. [] Psychiatric: Denies depression or anxiety. [] Heart Score: C/O Chest Pain: Yes HEART Score for Chest Pain: HEART Score for Chest Pain Response (Comments) Value History Slighlty/Non-Suspicious 0 ECG Nonspecific Repolarizatio 1 Age < 45 0 Risk Factors 1 or 2 Risk Factors 1 Total 2 Risk Factors: Risk Factors: DM, Current or recent (<one month) smoker, HTN, HLP, family history of CAD, obesity. Risk Scores: Score 0 - 3: 2.5% MACE over next 6 weeks - Discharge Home Score 4 - 6: 20.3% MACE over next 6 weeks - Admit for Clinical Observation Score 7 - 10: 72.7% MACE over next 6 weeks - Early Invasive Strategies Allergies: Allergies: Allergies Coded Allergies Type Severity Reaction Last Updated Verified lisinopril Allergy Intermediate FACIAL EDEMA 05/31/18 Yes Physical Exam: PE: Constitutional: Well developed, well nourished, no acute distress, non-toxic appearance. [] HENT: Normocephalic, atraumatic Eyes: Conjunctiva normal, no discharge. [] Neck: Normal range of motion, no tenderness, supple, no stridor. Trachea is midline, no JVD Cardiovascular:Heart rate regular rhythm, +2 radial and +2 posterior tibial pulses bilaterally. Warm and well perfused, no peripheral edema, no cyanosis. Lungs & Thorax: Bilateral breath sounds clear to auscultation, no rales, rhonchi or wheezes. Equal chest rise. No distress. Abdomen: Abdomen is obese, soft, nondistended, nontender to palpation, normal bowel sounds Skin: Warm, dry, no erythema, no rash. [] Back: No tenderness, no CVA tenderness. [] Extremities: No tenderness, no cyanosis, no clubbing, ROM intact, no edema. No calf tenderness. Neurologic: Alert and oriented X 3, normal motor function, normal sensory function, no focal deficits noted. [] Psychologic: Affect normal, judgement normal, mood normal. She is pleasant and cooperative. EKG: EKG: EKG is interpreted at 0711 Rhythm is sinus Rate is 81 bpm [place] is left No STEMI Radiology/Procedures: Radiology/Procedures: IMAGING REPORT Signed PATIENT: KARINE HARDIN LACCOUNT: [id number] : 1985 LOCATION: ER AGE: 35 SEX: F EXAM STATUS: PRE ER ORD. PHYSICIAN: WON CENTENO DO REASON: chest pain PROCEDURE: PORTABLE CHEST 1V Single view chest dated 04/03/2021 7:44 AM: COMPARISON: 08/20/2020 Clinical Indication: Chest pain. Findings: Single upright portable exam of the chest was performed. Heart size and mediastinal contours are within normal limits. Lungs are clear. No consolidation or pleural effusion. No pneumothorax. IMPRESSION: No acute radiographic abnormality. Electronically signed by: Omero Gunderson MD (04/03/2021 7:45 AM) [facility] DICTATED and SIGNED BY: OMERO GUNDERSON MD DATE: 04/03/21 [id number] 0 Course & Med Decision Making: Course & Med Decision Making Pertinent Labs and Imaging studies reviewed. (See chart for details) I have discussed the findings, differential diagnosis and plan of care with the patient. Emergency room work-up is unremarkable for any acute life-threatening process. I recommend she contact not only her PCP but also her assembling fabricator at [facility] for further evaluation and treatment of her symptoms. Strict return precautions are given. She is comfortable the plan for discharge home. Also, the patient requests several days off of work because she feels "tired." I gave her a work note for today only. She may follow-up with her primary care physician if she feels like she needs more extended time off of work. Mayela Disclaimer: Mayela Disclaimer: This electronic medical record was generated, in whole or in part, using a voice recognition dictation system. Departure Departure Impression: Primary Impression: Atypical chest pain Additional Impression: Palpitations Disposition: 01 HOME / SELF CARE / HOMELESS Condition: STABLE Referrals: UNKNOWN PCP NAME (PCP) Patient Instructions: Chest Pain (Nonspecific), Palpitations Additional Instructions: Return to the ER for more severe pain, shortness of breath, vomiting, dizziness, weakness, if you are acutely injured or for any other concerns. Please contact your primary care doctor and your assembling fabricator at for further evaluation and treatment and for follow-up. WON CENTENO DO Apr 03, 2021 07:09
--- NOTE | 2021-04-03 07:47 | RAD ---
Single view chest dated 04/03/2021 7:44 AM: COMPARISON: 08/20/2020 Clinical Indication: Chest pain. Findings: Single upright portable exam of the chest was performed. Heart size and mediastinal contours are with in normal limits. Lungs are clear. No consolidation or pleural effusion. No pneumothorax. IMPRESSION: No acute radiographic abnormality. Electronically signed by: Omero Gunderson MD (04/03/2021 7:45 AM) [facility]
[2021-04-03 07:57] LABS: BASO # 0.1 x10^3/uL (0.0-0.2); BASO % 1 % (0-3); EOS # 0.1 x10^3/uL (0.0-0.7); EOS % 2 % (0-3); HEMATOCRIT 33.9 % (36.0-47.0); HEMOGLOBIN 11.1 g/dL (12.0-15.5); LYMPH # 2.4 x10^3/uL (1.0-4.8); LYMPH % 35 % (24-48); MEAN CORPUSCULAR HEMOGLOBIN 19 pg (25-35); MEAN CORPUSCULAR HGB CONC 33 g/dL (31-37); MEAN CORPUSCULAR VOLUME 59 fL (79-100); MONO # 0.5 x10^3/uL (0.0-1.1); MONO % 7 % (0-9); NEUT # 3.9 x10^3/uL (1.8-7.7); NEUT % 56 % (31-73); PLATELET COUNT 532 x10^3/uL (140-400); RED BLOOD COUNT 5.77 x10^6/uL (3.50-5.40); RED CELL DISTRIBUTION WIDTH 18.8 % (11.5-14.5)
[2021-04-03 08:08] LABS: CALCIUM 8.3 mg/dL (8.5-10.1); CREATININE 0.7 mg/dL (0.6-1.0); GFR 116.6
[2021-04-03 08:14] LABS: ALBUMIN 2.9 g/dL (3.4-5.0); ALBUMIN/GLOBULIN RATIO 0.5 (1.0-1.7); MAGNESIUM 1.9 mg/dL (1.8-2.4); TOTAL BILIRUBIN 0.2 mg/dL (0.2-1.0); TOTAL PROTEIN 8.2 g/dL (6.4-8.2)
[2021-04-03 08:21] LABS: PREG TEST PT QUAL NEGATIVE (NEG)
[2021-04-03 09:27] VITALS: BP 162/87
[2021-04-03 10:16] LABS: PLT ESTIMATE INCREASED (ADEQUATE)
[2021-04-03 10:17] LABS: ANISOCYTOSIS PRESENT; HYPOCHROMIA MOD; MICROCYTOSIS MOD
[2021-04-03 10:18] LABS: TARGET CELLS OCC
--- NOTE | 2021-04-03 17:21 | EKG ---
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
== END 2021-04-03 09:33 | disposition home or self-care (01) ==
LOC: ER 06:54
DX: R07.89 Other chest pain (principal); R00.2 Palpitations; I10 Essential (primary) hypertension; Z88.6 Allergy status to analgesic agent
CPT/HCPCS: 36415; 71045; 80053; 83735; 83880; 84443; 84484; 84703; 85025; 85379; 93005; 99285-25